=== PATIENT | female | born 1945 | race Caucasian/White ===

== ENCOUNTER 2021-02-19 13:02 | Outpatient (REF) | payer MEDICARE, SELFPAY ==
[2021-02-19 14:17] LABS: COVID-19 Test Negative (Negative)
== END 2021-02-19 13:03 | disposition home or self-care (01) ==
LOC: HO.LAB 13:02
PROVIDERS: PCP Internal Medicine; Visit Provider Internal Medicine
DX: Z20.822 Contact with and (suspected) exposure to COVID-19 (principal)
CPT/HCPCS: 36415; 87635; C9803

== ENCOUNTER 2024-08-31 07:55 | Emergency (ER) | payer OTHER, MEDICARE, SELFPAY ==
--- NOTE | ~2024-08-31 | XR_ITS ---
CLINICAL HISTORY: shoulder pain 3 view right shoulder Comparison: None Findings: No fractures or dislocations. No significant loss of joint space or osteophytes. There is calcification adjacent to the greater tuberosity. Correlate for calcific tendinitis/bursitis. No erosions. No radiopaque foreign body. IMPRESSION: 1. Possible calcific bursitis/tendinitis. Clinical follow-up recommended. This document has been electronically signed by: Patel Barron MD on 08/31/2024 08:41:37
[2024-08-31 07:57] VITALS: BP 142/77; PULSE 79; RESP 16; TEMP 36.1; O2SAT 95; BMI 29.2
--- NOTE | 2024-08-31 08:52 | ECG_ITS ---
Test Reason : right shoulder pain Blood Pressure : */* mmHG Vent. Rate : 69 BPM Atrial Rate : 69 BPM P-R Int : 192 ms QRS Dur : 94 ms QT Int : 400 ms P-R-T Axes : * -6 -1 degrees QTcB Int : 428 ms Sinus rhythm with occasional Premature ventricular complexes Inferior infarct , age undetermined Cannot rule out Anterior infarct , age undetermined Abnormal ECG When compared with ECG of 24-Jan-2020 10:48, Premature ventricular complexes are now Present Minimal criteria for Anterior infarct are now Present Inferior infarct is now Present Inverted T waves have replaced nonspecific T wave abnormality in Inferior leads Referred By: Maura Palafox Electronically Signed By: Benji Toledo
--- NOTE | 2024-08-31 08:52 | ED.EXTPRO ---
HPI - Extremity Problem General Chief complaint: Extremity Injury, Upper Stated complaint: r shoulder pain Time Seen by Provider: 08/31/24 08:13 Source: patient, RN notes reviewed and old records reviewed Mode of arrival: ambulatory History of Present Illness ED Provider: Maura Palafox PA-C HPI Narrative: 79-year-old female with a past medical history of CAD s/p stenting on Plavix presenting to the ED complaining of right shoulder pain radiating down RLE with associated numbness/tingling x 1 week s/p awkwardly twisting arm while carrying suitcase on escalator during vacation. Reports limited ROM secondary to pain. Denies direct injury, trauma/fall, CP/SOB, weakness. Related Data Allergies Allergy/AdvReac Type Severity Reaction Status Date / Time No Known Allergies Allergy Verified 08/31/24 08:02 Review of Systems Review of Systems: Yes all other systems are reviewed and are negative Constitutional: Constitutional: Reports as per [facility] Past Medical History Attestation statement: The following information was validated with the patient. Source: old records reviewed Social History Social History Advance Directives: No Advance Directives Information Provided: No Do you have a plan to hurt others: No Plan Physical Exam Vital Signs: Vital Signs: Last Vital Signs Temp 97.0 F 08/31/24 07:57 Pulse 79 08/31/24 07:57 Resp 16 08/31/24 07:57 BP 142/77 H 08/31/24 07:57 Pulse Ox 95 08/31/24 07:57 O2 Del Method Room Air 08/31/24 07:57 BMI result Body Mass Index 29.2 Const: General: cooperative, healthy appearing and no acute distress Orientation/consciousness: patient oriented x3 Limitations: no limitations HEENT: Head: Yes normal to inspection and Yes atraumatic Ears: hearing grossly normal bilaterally General nose exam: Normal external nose present Face and sinus: Yes normal facial exam Eyes: General: appearance normal, both eyes and all related structures EOM: EOMs intact bilaterally Neck: Neck: Yes normal visual inspection and Yes no meningeal signs Resp: Effort & Inspection: normal respiratory effort and no respiratory distress Cardio: Rate: regular rate Skin: Rashes: no rashes Wounds: no wounds Neuro: General: patient oriented x3, tone normal and no meningeal signs Cranial nerves: Yes CN's II-XII intact bilaterally Gait exam (Neuro): Normal gait present Extrem: Other: Right shoulder with mild anterior swelling. + tenderness to palpation appreciated greatest to AC joint and proximal deltoid. Limited ROM secondary to pain. Neurovascularly intact distally. Right elbow/forearm/wrist and hand nontender No pitting edema Course Course Course Narrative: XR shoulder RT min 2V IMPRESSION: 1. Possible calcific bursitis/tendinitis. Clinical follow-up recommended. Results discussed with patient including worrisome signs and symptoms and strict return precautions, and when to return to the emergency department. They verbalized understanding and feel safe for discharge at this time. Medications Administered Discontinued Medications Generic Name Dose Route Start Last Admin Trade Name Jean PRN Reason Stop Dose Admin Acetaminophen 650 mg 08/31/24 08:49 08/31/24 09:35 Acetaminophen 325 Mg Tablet PO 08/31/24 08:50 650 mg ONCE ONE Administration Morphine Sulfate 15 mg 08/31/24 08:49 08/31/24 09:36 Morphine Sulfate Immed Release 15 Mg Tablet PO 08/31/24 08:50 Not Given ONCE ONE Medical Decision Making Medical Decision Making MDM Narrative: 79-year-old female with a past medical history of CAD s/p stenting on Plavix presenting to the ED complaining of right shoulder pain radiating down RLE with associated numbness/tingling x 1 week s/p awkwardly twisting arm while carrying suitcase on escalator during vacation. On exam vital signs stable, NAD, nontoxic appearing, physical exam as noted above. Concern for MSK pain/strain vs tendon/ligamental injury vs bursitis/tendonitis. Rule out atypical ACS although lower suspicion. Unlikely fracture. Unlikely DVT Plan: X-ray, pain control, EKG Please refer to course for remaining clinical decision making, interpretation of labs/imaging results, and discussions with consultants and/or family members. Differential Diagnosis Differential Diagnoses: The differential diagnosis associated with the presentation includes As above Independent Interpretation I performed an independent interpretation of an: EKG and Plain X-Ray Radiology Impression Discussion of test interpretation with radiology: I have reviewed the radiologist's reading. External Record Review External record reviewed: Inpatient record, Office record, Outpatient record, Prior outpatient labs, Prior outpatient radiology, Primary care record and Outside ED record Tests considered The following testing was considered but not selected: As above Prescription Management I considered prescription management with: Pain Medication Chronic Conditions Patient?s care impacted by: Other (CAD) Social Determinants Patient?s care significantly limited by Social Determinants of Health including: Other Social Determinant of Health Discharge Plan Discharge Clinical Impression: Calcific shoulder tendinitis Patient Disposition: Home, Self-Care [place]: [facility] [place] [facility] [place] Group] - 1 week Physician,Unknown J [Primary Care Provider] - Print Language: Senegalese
[2024-08-31] MEDS: Acetaminophen 325 MG TABLET 650 MG PO (09:35)
[2024-08-31 10:01] VITALS: BP 142/77; PULSE 79; RESP 16; TEMP 36.1; O2SAT 95
== END 2024-08-31 10:02 | disposition home or self-care (01) ==
PROVIDERS: Emergency Provider Emergency Medicine
DX: M75.31 Calcific tendinitis of right shoulder (principal); R94.31 Abnormal electrocardiogram [ECG] [EKG]; M25.511 Pain in right shoulder
CPT/HCPCS: 73030; 93005; 99283

== ENCOUNTER → 2024-08-31 08:20 | Outpatient (BNV) | payer OTHER, MEDICARE, SELFPAY | PROVIDERS: Emergency Provider Emergency Medicine; Visit Provider Specialist | DX: M75.31 Calcific tendinitis of right shoulder (principal) | CPT/HCPCS: 73030 ==

== ENCOUNTER → 2024-08-31 08:52 | Outpatient (BNV) | payer OTHER, MEDICARE, SELFPAY | PROVIDERS: Emergency Provider Emergency Medicine; Visit Provider Internal Medicine Cardiovascular Disease | DX: I49.3 Ventricular premature depolarization (principal) | CPT/HCPCS: 93010 ==